=== PATIENT | male | born 1945 | race American Indian/Alaskan Native ===

== ENCOUNTER 2016-04-11 10:40 | Emergency (ER) | payer MEDICARE ==
[2016-04-11 10:56] VITALS: BP 176/92
--- NOTE | 2016-04-11 11:05 | Emergency Department Report ---
Chief Complaint: Chest Pain Stated Complaint: CHEST PAIN Time Seen by Provider: 04/11/16 11:00 - HPI History of Present Illness: 70 male with a past medical history of diabetes hypertension next celebrate hypercholesterolemia. Patient reports that H last night he felt like something grab at his chest. He was actually walking to get something in the kitchen and he notice the pain in his chest. Patient then lay down which she said the pain subsided. He then woke up this morning went to get up and move around and the pain reappeared. Patient denies any nausea vomiting denies any diaphoresis no fever no chills. She denies any URI no cough. He is accompanied by . - Exam Vital Signs: Vital Signs 04/11/16 10:40 Temperature 98.0 F Pulse Rate 83 Respiratory 16 Rate Blood Pressure 176/92 O2 Sat by Pulse 97 Oximetry Physical Exam: A since alert and oriented 3. Cardiovascular: Regular rate and rhythm no murmurs appreciated. Respiratory: Clear to auscultation bilateral. Abdomen soft nontender nondistended. Extremities: Edema 1 and right leg, left leg trace. MSE screening note: Focused history and physical exam performed. Due to findings the following was ordered: Triage chest pain protocol ordered. Patient be evaluated to Main ER. ED Disposition for MSE Condition: Stable
[2016-04-11 11:21] LABS: Basophils % (Auto) 0.9 % (0.0-1.8); Eosinophils % (Auto) 6.6 % (0.0-4.3); Hematocrit 42.4 % (35.5-45.6); Hemoglobin 14.2 gm/dl (11.8-15.2); Mean Corpuscular HGB Conc 34 % (32-34); Mean Corpuscular Hemoglobin 27 pg (28-32); Mean Corpuscular Volume 81 fl (84-94); Platelet Count 116 K/mm3 (140-440); Red Blood Count 5.21 M/mm3 (3.65-5.03); Red Cell Distribution Width 13.6 % (13.2-15.2)
[2016-04-11 11:44] LABS: Creatine Kinase MB 2.9 ng/mL (0.0-4.0)
[2016-04-11 11:45] LABS: Anion Gap 16 mmol/L; Blood Urea Nitrogen 10 mg/dL (9-20); Calcium 9.5 mg/dL (8.4-10.2); Carbon Dioxide 29 mmol/L (22-30); Creatine Kinase 123 units/L (55-170); Glucose 386 mg/dL (75-100); Potassium 4.1 mmol/L (3.6-5.0); Sodium 136 mmol/L (137-145)
--- NOTE | 2016-04-12 13:51 | ED Elopement Review ---
ED Pt Elopement review - Results review Lab results: Laboratory Tests 04/11/16 04/11/16 11:11 11:11 WBC 8.0 RBC 5.21 H Hgb 14.2 Hct 42.4 MCV 81 L MCH 27 L MCHC 34 RDW 13.6 Plt Count 116 L Lymph % (Auto) 29.4 Tift % (Auto) 7.8 H Eos % (Auto) 6.6 H Baso % (Auto) 0.9 Lymph # 2.3 Tift # 0.6 Eos # 0.5 H Baso # 0.1 Seg Neutrophils % 55.3 Seg Neutrophils # 4.4 Sodium 136 L Potassium 4.1 Chloride 95.0 L Carbon Dioxide 29 Anion Gap 16 BUN 10 Creatinine 0.8 Estimated GFR > 60 BUN/Creatinine Ratio 12.50 Glucose 386 H Calcium 9.5 Total Creatine Kinase 123 CK-MB (CK-2) 2.9 CK-MB (CK-2) Rel Index 2.3 Troponin T < 0.010 - Call Back decision Pt Call Back Decision: No action required
== END 2016-04-11 21:18 | disposition left against medical advice (07) ==
LOC: ED 10:40
DX: R07.9 Chest pain, unspecified (principal); Z53.21 Procedure and treatment not carried out due to patient leaving prior to being seen by health care provider
CPT/HCPCS: 36415; 80048; 82550; 82553; 84484; 85025; 93005; 93010